=== PATIENT | female | born 1965 | race Caucasian/White ===

== ENCOUNTER 2017-02-11 23:46 | Emergency (ER) | payer BC ==
[~2017-02-11 23:46] MED LIST: BENADRYL; BENTYL20 MG PO; CALCIUM 600 +1 EA13 PO; CALCIUM PO; CIPRO500 MG PO; CYMBALTA30 M1 PO; ESTROSTEP FE; FLEXERIL5 M1 PO; FLEXERIL5 MG PO; IBUPROFEN800 MG; IMODIUM2 MG; JENTADUETO 2.51 EACH PO; LOMOTIL TABLET1 TAB PO; LYRICA50 MG PO; MELATONIN3 M2 PO; MOBIC7.5 M2 PO; MULTI VITAMIN1 EAC1 PO; MULTIVITAMIN1 CAP; NORCO 5/325 TAB1 TAB PO; OXYCONTIN40 MG; PAMELOR; TYLENOL ARTHRI650 MG; [UNRECOGNIZED DRUG - REMARK]
[2017-02-11] MEDS ORDERED: PRINIVIL5 M1 PO (23:57)
[2017-02-11] MEDS ORDERED: BYSTOLIC5 M1 PO (23:57)
[2017-02-11] MEDS ORDERED: LEVEMIR FL100 UNIT/2 SC (23:58)
[2017-02-12 00:25] LABS: BASO % 0.3 % (0-2); EOS % 3.6 % (0-7); EOSINOPHIL ABSOLUTE COUNT 0.4 tho/cmm (0.0-0.7); HCT-HEMATOCRIT 38.3 % (34.0-49.0); HGB-HEMOGLOBIN 13.1 gm/dl (12.0-15.5); IMMATURE GRANULOCYTES ABSOLUTE 0.04 tho/cmm (0-0.03); IMMATURE GRANULOCYTES PERCENT 0.4 % (0-0.3); LYMPH % 35.1 % (20-45); LYMPH ABSOLUTE COUNT 3.7 tho/cmm (0.8-4.5); MCH (MEAN CORPUSCULAR HGB) 30.1 pg (28.0-32.0); MCHC MEAN CORPUSCULAR HGB CONC 34.2 % (32.0-36.0); MEAN PLATELET VOLUME 10.2 cmc (9.4-12.4); MONO % 3.8 % (0-12); MONOCYTE ABSOLUTE COUNT 0.4 tho/cmm (0.0-1.2); NEUTROPHILS % 56.8 % (40-80); PLATELET COUNT 315 tho/cmm (150-450); RED BLOOD COUNT 4.35 mil/cmm (4.00-5.20); RED CELL DISTRIBUTION WIDTH 12.5 % (12.4-16.4); WHITE BLOOD COUNT 10.5 tho/cmm (4.0-10.0)
[2017-02-12 00:40] LABS: ANION GAP 16 mmol/L (0-20); BLOOD UREA NITROGEN 15 mg/dl (6-24); CALCIUM 9.7 mg/dl (8.5-10.5); CARBON DIOXIDE-VENOUS 25 mmol/L (22-32); CHLORIDE 99 mmol/l (96-110); CREATININE 1.09 mg/dl (0.50-1.10); GLUCOSE 327 mg/dL (70-110); MAGNESIUM 1.3 mg/dl (1.8-2.6); POTASSIUM 4.4 mmol/L (3.7-5.1); SODIUM 136 mmol/L (135-145); eGFR VALUE FOR BLACK 68 mL/Min
[2017-02-12 00:45] LABS: TSH-THYROID STIMULATING HORM. 1.68 uIU/ml (0.40-3.80)
[2017-02-12 02:54] LABS: URINE BILIRUBIN NEGATIVE (NEG); URINE BLOOD NEGATIVE (NEG); URINE GLUCOSE (UA) LARGE (NEG); URINE KETONE NEGATIVE (NEG); URINE LEUKOCYTE ESTERASE POSITIVE (NEG); URINE NITRITE NEGATIVE (NEG); URINE PROTEIN NEGATIVE (NEG); URINE SPECIFIC GRAVITY 1.015 (1.003-1.030)
[2017-02-12 02:56] LABS: URINE APPEARANCE HAZY; URINE COLOR YELLOW
[2017-02-12 03:04] LABS: URINE RBC 0 /[HPF] (0-5)
[2017-02-12 03:05] LABS: URINE BACTERIA 1+
== END 2017-02-12 04:10 ==
LOC: EDMED 23:46
PROVIDERS: Emergency Medicine
DX: E83.42 Hypomagnesemia (principal); R00.2 Palpitations; E11.9 Type 2 diabetes mellitus without complications; Z79.4 Long term (current) use of insulin
CPT/HCPCS: J3475; J7030